=== PATIENT | female | born 1995 | race Caucasian/White ===

== ENCOUNTER 2016-11-18 11:37 | Emergency (ER) | payer OTHER ==
[~2016-11-18] VITALS: Ht 175.3 cm; Wt 70.5 kg
[2016-11-18 11:53] VITALS: BP 132/70; TEMP 97.6
[2016-11-18 12:41] LABS: PH 6 (5-8); URINE APPEARANCE Hazy; URINE BACTERIA Rare /hpf; URINE BILIRUBIN Negative (NEGATIVE); URINE BLOOD Negative (NEGATIVE); URINE COLOR Yellow; URINE GLUCOSE Negative (NEGATIVE); URINE KETONE Negative (NEGATIVE); URINE UROBILINOGEN Negative (NEGATIVE)
[2016-11-18] MEDS ORDERED: FLEXERIL 1010 MG/TAB PO (13:13)
[2016-11-18 13:30] VITALS: PULSE 68
== END 2016-11-18 13:31 | disposition home or self-care (01) ==
LOC: COL.ER 11:37
PROVIDERS: Physician Assistant
DX: M54.5 Low back pain (principal)

== ENCOUNTER 2018-03-25 10:04 | Emergency (ER) | payer OTHER ==
[~2018-03-25] VITALS: Ht 172.7 cm; Wt 75.0 kg
[~2018-03-25 10:04] MED LIST: FLEXERIL 1010 MG/TAB PO
[2018-03-25 10:09] VITALS: BP 126/64; TEMP 98.3
[2018-03-25] MEDS ORDERED: CEPHALEXIN500 M1 PO (10:43)
[2018-03-25 11:08] VITALS: PULSE 64
== END 2018-03-25 11:10 | disposition home or self-care (01) ==
LOC: COL.ER 10:04
DX: S91.011A Laceration without foreign body, right ankle, initial encounter (principal); F12.90 Cannabis use, unspecified, uncomplicated; Z23 Encounter for immunization; W26.8XXA Contact with other sharp object(s), not elsewhere classified, initial encounter; Y92.009 Unspecified place in unspecified non-institutional (private) residence as the place of occurrence of the external cause